=== PATIENT | female | born 1990 | race Caucasian/White ===

== ENCOUNTER 2018-09-20 18:11 | Emergency (ER) | payer MEDICAID ==
[~2018-09-20] VITALS: Ht 160 cm; Wt 88.6 kg
[2018-09-20] MEDS ORDERED: CITA10TA16 PO (18:52)
[2018-09-20] MEDS ORDERED: TRAZ-212 PO (18:52)
[2018-09-20] MEDS ORDERED: ZIPR40CA2 PO (18:52)
[2018-09-20] MEDS ORDERED: OXCA150T5 PO (18:52)
[2018-09-20 21:34] VITALS: BP 129/89
== END 2018-09-20 21:35 | disposition home or self-care (01) ==
LOC: ER 18:11
DX: R21 Rash and other nonspecific skin eruption (principal); F12.10 Cannabis abuse, uncomplicated; F31.9 Bipolar disorder, unspecified; Z79.899 Other long term (current) drug therapy
CPT/HCPCS: 99283; Z7610

== ENCOUNTER 2018-11-23 10:47 | Emergency (ER) | payer MEDICAID, MEDICARE ==
[~2018-11-23] VITALS: Ht 160 cm; Wt 86.0 kg
[~2018-11-23 10:47] MED LIST: CITA10TA16 PO; OXCA150T5 PO; TRAZ-251 PO; ZIPR40CA2 PO
[2018-11-23 11:38] LABS: CLARITY URINE TURBID (CLEAR); COLOR URINE ORANGE (YELLOW); KETONES URINE NEGATIVE (NEGATIVE); LEUKOCYTE ESTERASE URINE 1+ (NEGATIVE); NITRITE URINE NEGATIVE (NEGATIVE); OCCULT BLOOD URINE 3+ (NEGATIVE); PROTEIN URINE 1+ (NEGATIVE); SPECIFIC GRAVITY URINE 1.029 (1.005-1.030)
[2018-11-23 12:11] LABS: BASOPHILS % 0.7 % (0.0-2.0); EOSINOPHILS % 2.7 % (0.0-5.0); HEMATOCRIT. 38.1 % (36.0-48.0); HEMOGLOBIN. 13.1 g/dL (12.0-16.0); LYMPHOCYTES % 19.6 % (20.0-50.0); MEAN CORPUSCULAR HEMOGLOBIN 30.1 pg (28.0-32.0); MEAN CORPUSCULAR VOLUME 87.7 fL (81.0-99.0); MEAN PLATELET VOLUME 8.9 fl (7.4-10.4); MONOCYTES % 4.9 % (2.0-8.0); NEUTROPHILS % 72.1 % (40.0-76.0); PLATELET 248 x1000/uL (130-400); RED BLOOD CELL COUNT 4.34 mill/uL (4.2-5.4); RED CELL DISTRIBUTION WIDTH 12.3 % (11.6-14.6)
[2018-11-23 12:14] LABS: CHLORIDE 109 mEq/L (98-107)
[2018-11-23] MEDS ORDERED: IBUPROFEN 400MG TABLET PO ONE (12:15)
[2018-11-23 12:25] LABS: B-HCG QUANTITATIVE < 1 mIU/mL (<3)
[2018-11-23 12:41] VITALS: BP 133/88
== END 2018-11-23 12:42 | disposition home or self-care (01) ==
LOC: ER 10:47
DX: N93.8 Other specified abnormal uterine and vaginal bleeding (principal); F31.9 Bipolar disorder, unspecified; F12.10 Cannabis abuse, uncomplicated
CPT/HCPCS: 36415; 81025; 84702; 86850; 86900; 99283